=== PATIENT | male | born 1945 | race Caucasian/White ===

== ENCOUNTER 2022-07-07 16:23 | Emergency (ER) | payer MEDICARE, SELFPAY ==
--- NOTE | ~2022-07-07 | XR_ITS ---
EXAMINATION: XR CHEST CLINICAL INFORMATION: Cough. COMPARISON: None available. TECHNIQUE: Frontal view of the chest was obtained. FINDINGS: Low lung volumes with diffuse bronchovascular crowding. No focal infiltrate, pleural effusion or pneumothorax. No significant cardiomediastinal contour abnormality. No acute osseous findings. The visualized upper abdomen is within normal limits. XR/XR chest 1V IMPRESSION: Low lung volumes with bronchovascular crowding. No focal consolidation, pleural effusion or pneumothorax.
--- NOTE | 2022-07-07 16:40 | ED.GENADULT ---
HPI - General Adult General Chief complaint: General Medical Stated complaint: fever weakness Time Seen by Provider: 07/07/22 16:36 Source: patient Mode of arrival: EMS Limitations: no limitations History of Present Illness HPI narrative: Patient 77 years old history of Parkinson disease AFib on Eliquis sent from the walk-in clinic for fever temperature of 103 degrees. Patient has been coughing for last 1month with mucopurulent phlegm saturating 94% at room air. Complaining of chills no chest pain or palpitation no abdominal pain no nausea vomiting no urinary symptoms Related Data Home Medications Medication Instructions Recorded Confirmed amlodipine 5 mg tablet 5 mg PO DAILY 07/07/22 apixaban 2.5 mg tablet (Eliquis) 2.5 mg PO BID 07/07/22 carbidopa 25 mg-levodopa 100 mg 0 tab PO 07/07/22 tablet citalopram 20 mg tablet 20 mg PO DAILY 07/07/22 clonidine HCl 0.1 mg tablet 0.1 mg PO BID 07/07/22 diclofenac sodium 1 % topical gel 1 g topical TID 07/07/22 hydrochlorothiazide 25 mg tablet 25 mg PO DAILY 07/07/22 levetiracetam 750 mg tablet 1,500 mg PO BID 07/07/22 levothyroxine 25 mcg tablet 25 mcg PO DAILY 07/07/22 losartan 100 mg tablet 100 mg PO DAILY 07/07/22 oxcarbazepine 300 mg tablet 300 mg PO TID 07/07/22 pravastatin 20 mg tablet 20 mg PO DAILY 07/07/22 propranolol 120 mg capsule,24 120 mg PO DAILY 07/07/22 hr,extended release Previous Rx's Medication Instructions Recorded amoxicillin 875 mg-potassium 1 tab PO BID #20 tabs 07/07/22 clavulanate 125 mg tablet Allergies Allergy/AdvReac Type Severity Reaction Status Date / Time No Known Allergies Allergy Verified 07/07/22 15:47 Review of Systems Review of Systems: Yes all other systems are reviewed and are negative [facility] Social History Social History Alcohol intake: never Smoked in Last 30 Days: No Use of substances other than those prescribed or required for medical reasons: No Advance Directives: No Advance Directives Information Provided: No Physical Exam ED Vital Signs: Vital Signs - 24 hr 07/07/22 16:43 07/07/22 18:19 07/07/22 18:33 Temperature 102.8 F H 102.9 F H 102.9 F H Pulse Rate 90 92 96 Respiratory Rate 20 20 22 H Blood Pressure 170/81 H 177/90 H Pulse Oximetry 92 93 93 Oxygen Delivery Method Room Air Room Air Room Air 07/07/22 18:48 07/07/22 19:02 07/07/22 20:00 Temperature 100.9 F H Pulse Rate 93 92 87 Respiratory Rate 22 H 20 20 Blood Pressure 172/85 H 155/94 H 168/85 H Pulse Oximetry 90 L 93 95 Oxygen Delivery Method Room Air Room Air Room Air BMI result Body Mass Index 29.9 Appearance: Alert. Oriented X3. No acute distress. Eyes: PERRLA, No Nystagmus ENT: Pharynx normal. Oral Mucosa moist Neck: Normal inspection. Neck supple. CVS: Normal heart rate and rhythm. Pulses normal. Respiratory: No respiratory distress. Equal air entry bilateral, no wheezing/rales/rhonchi bilateral conducted sounds at the base Abdomen: Soft and nontender. Bowel sounds are present, no mass palpable, no CVA tenderness Skin: Skin warm and dry. Normal skin color. Normal skin turgor. Extremities: No lower extremity edema. No calf tenderness Neuro: Oriented X 3. No motor deficit. No sensory deficit.No cerebellar signs , cranial nerves II-XII intact parkinsonian features Medications Administered Discontinued Medications Generic Name Dose Route Start Last Admin Trade Name Freq PRN Reason Stop Dose Admin Acetaminophen 650 mg 07/07/22 16:46 07/07/22 17:01 Acetaminophen Supp 650 Mg Supp.Rect AR 07/07/22 16:47 650 mg ONCE ONE Administration Acetaminophen 650 mg 07/07/22 19:49 07/07/22 20:06 Acetaminophen 325 Mg Tablet PO 07/07/22 19:50 650 mg ONCE ONE Administration Sodium Chloride 1,000 mls @ 999 mls/hr 07/07/22 16:45 07/07/22 18:10 Ns IV 07/07/22 17:45 Infused .Q1H1M ONE Infusion Piperacillin Sod/Tazobactam 50 mls @ 100 mls/hr 07/07/22 16:49 07/07/22 17:44 Sod 3.375 gm/ Sodium Chloride IV 07/07/22 17:18 Infused ONCE ONE Infusion Medical Decision Making Medical Decision Making [facility] Narrative: Patient Parkinson's with fever with chronic cough or workup negative for count slightly elevated cause of fever on very clear likely bronchitis discharge patient home on doxycycline Lab Data [facility] Lab Attestation statement: I reviewed the patient's lab results. 07/07/22 17:05 07/07/22 17:05 Labs: Lab Results 07/07/22 07/07/22 07/07/22 Range/Units 17:05 17:05 17:05 WBC 13.7 H (4.8-10.8) X10*3/uL RBC 4.69 (4.60-5.80) X10*6/uL Hgb 14.5 (14.0-18.0) g/dl Hct 43.0 (42.0-52.0) % MCV 91.7 (80.0-98.0) fL MCH 30.9 (27.0-33.0) pg MCHC 33.7 (31.0-36.0) g/dl RDW 13.0 (11.0-16.0) % Plt Count 235 (160-400) X10*3/uL MPV 8.8 L (9.4-12.4) fL Immature Gran % (Auto) 0.4 (0.0-0.4) % Neut % (Auto) 79.4 H (45-73) % Lymph % (Auto) 12.2 L (20-40) % [place] % (Auto) 7.4 (2-11) % Eos % (Auto) 0.4 (0-4) % Baso % (Auto) 0.2 (0-2) % Lymph # (Auto) 1.7 (1.2-4.9) X10*3/uL [place] # (Auto) 1.0 (0.1-1.2) X10*3/uL Eos # (Auto) 0.1 (0.0-0.4) X10*3/uL Baso # (Auto) 0.0 (0.0-0.2) X10*3/uL Abs Immat Gran (auto) 0.06 H (0.00-0.03) X10*3/uL Absolute Neuts (auto) 10.8 H (2.0-8.3) x10*3/uL Absolute Nucleated RBC 0.000 (0.0-0.012) X10*3/uL Nucleated RBC % (auto) 0.0 (0.0-0.2) /100WBC Sodium 143 (135-145) mmol/L Potassium 3.2 L (3.3-5.1) mmol/L Chloride 99 (96-108) mmol/L Carbon Dioxide 32 H (22-29) mmol/L Anion Gap 15 (12-20) BUN 28 H (9-16) mg/dL Creatinine 1.62 H (0.5-1.4) mg/dL Estim Creat Clear Calc 36.1 Estimated GFR 42 Random Glucose 110 (60-115) mg/dL Lactic Acid 1.1 (0.5-2.0) mmol/L Calcium 9.8 (8.4-10.2) mg/dL Total Bilirubin 0.7 (0.0-1.0) mg/dL AST 17 (5-37) U/L ALT < 6 (0-40) U/L Alkaline Phosphatase 84 (39-117) U/L Total Protein 6.5 (6.5-8.0) g/dL Albumin 4.4 (3.5-5.0) g/dL Urine Color Urine Appearance Urine pH (5.0-9.0) Ur Specific [place] (1.005-1.025) Urine Protein (Neg-Trace) mg/dL Urine Glucose (UA) (Negative) mg/dL Urine Ketones (Negative) mg/dL Urine Blood (Negative) Urine Nitrite (Negative) Ur Leukocyte Esterase (Negative) Urine RBC (0-2) /HPF Urine WBC (0-5) /HPF Ur Squamous Epith Cells (0-2) /HPF Urine Bacteria (None Seen) Hyaline Casts (0-2) /LPF Influenza Type A (PCR) (Negative) Influenza Type B (PCR) (Negative) RSV RNA Qual (PCR) (Negative) SARS-CoV-2 RNA (RT-PCR) (Negative) 07/07/22 07/07/22 Range/Units 17:05 19:05 WBC (4.8-10.8) X10*3/uL RBC (4.60-5.80) X10*6/uL Hgb (14.0-18.0) g/dl Hct (42.0-52.0) % MCV (80.0-98.0) fL MCH (27.0-33.0) pg MCHC (31.0-36.0) g/dl RDW (11.0-16.0) % Plt Count (160-400) X10*3/uL MPV (9.4-12.4) fL Immature Gran % (Auto) (0.0-0.4) % Neut % (Auto) (45-73) % Lymph % (Auto) (20-40) % [place] % (Auto) (2-11) % Eos % (Auto) (0-4) % Baso % (Auto) (0-2) % Lymph # (Auto) (1.2-4.9) X10*3/uL [place] # (Auto) (0.1-1.2) X10*3/uL Eos # (Auto) (0.0-0.4) X10*3/uL Baso # (Auto) (0.0-0.2) X10*3/uL Abs Immat Gran (auto) (0.00-0.03) X10*3/uL Absolute Neuts (auto) (2.0-8.3) x10*3/uL Absolute Nucleated RBC (0.0-0.012) X10*3/uL Nucleated RBC % (auto) (0.0-0.2) /100WBC Sodium (135-145) mmol/L Potassium (3.3-5.1) mmol/L Chloride (96-108) mmol/L Carbon Dioxide (22-29) mmol/L Anion Gap (12-20) BUN (9-16) mg/dL Creatinine (0.5-1.4) mg/dL Estim Creat Clear Calc Estimated GFR Random Glucose (60-115) mg/dL Lactic Acid (0.5-2.0) mmol/L Calcium (8.4-10.2) mg/dL Total Bilirubin (0.0-1.0) mg/dL AST (5-37) U/L ALT (0-40) U/L Alkaline Phosphatase (39-117) U/L Total Protein (6.5-8.0) g/dL Albumin (3.5-5.0) g/dL Urine Color Yellow Urine Appearance Clear Urine pH 6.0 (5.0-9.0) Ur Specific [place] 1.015 (1.005-1.025) Urine Protein 100 (2+) H (Neg-Trace) mg/dL Urine Glucose (UA) Negative (Negative) mg/dL Urine Ketones Negative (Negative) mg/dL Urine Blood Negative (Negative) Urine Nitrite Negative (Negative) Ur Leukocyte Esterase Negative (Negative) Urine RBC 0-2 (0-2) /HPF Urine WBC 0-5 (0-5) /HPF Ur Squamous Epith Cells 0-2 (0-2) /HPF Urine Bacteria None Seen (None Seen) Hyaline Casts 0-2 (0-2) /LPF Influenza Type A (PCR) NEGATIVE (Negative) Influenza Type B (PCR) NEGATIVE (Negative) RSV RNA Qual (PCR) NEGATIVE (Negative) SARS-CoV-2 RNA (RT-PCR) NEGATIVE (Negative) Discharge Plan Discharge Clinical Impression: Febrile illness, Acute bronchitis Patient Disposition: Home, Self-Care Instructions: Fever in Adults (ED), Acute Bronchitis (ED) Additional Instructions: Take antibiotic as prescribed Tylenol for fever Follow with PCP as needed Prescriptions: New amoxicillin-pot clavulanate 875-125 mg tablet 1 tab PO BID Qty: 20 0RF No Action levothyroxine 25 mcg tablet 25 mcg PO DAILY Eliquis 2.5 mg tablet 2.5 mg PO BID carbidopa-levodopa 25-100 mg tablet 0 tab PO oxcarbazepine 300 mg tablet 300 mg PO TID losartan 100 mg tablet 100 mg PO DAILY propranolol 120 mg capsule,extended release 24 hr 120 mg PO DAILY hydrochlorothiazide 25 mg tablet 25 mg PO DAILY levetiracetam 750 mg tablet 1,500 mg PO BID amlodipine 5 mg tablet 5 mg PO DAILY citalopram 20 mg tablet 20 mg PO DAILY pravastatin 20 mg tablet 20 mg PO DAILY clonidine HCl 0.1 mg tablet 0.1 mg PO BID diclofenac sodium 1 % gel 1 g topical TID
[2022-07-07 16:43] VITALS: BP 144/78; PULSE 90; PULSE 99; RESP 20; TEMP 39.3; O2SAT 92; O2SAT 94; BMI 29.9
--- NOTE | 2022-07-07 16:45 | ECG_ITS ---
Test Reason : FEVER Blood Pressure : / mmHG Vent. Rate : 099 BPM Atrial Rate : 288 BPM P-R Int : 000 ms QRS Dur : 078 ms QT Int : 276 ms P-R-T Axes : 000 -13 -39 degrees QTc Int : 354 ms Poor data quality Atrial flutter with variable A-V block Inferior infarct , age undetermined Abnormal ECG No previous ECGs available Referred By: Antonio Pineda Electronically Signed By:BRITNEY WAHL MD
[2022-07-07] MEDS: Acetaminophen Supp 650 MG SUPP.RECT PR (17:01)
[2022-07-07] MEDS: 0.9 % Sodium Chloride 1,000 ML 999 ML IV (17:02)
[2022-07-07 17:13] LABS: MANUAL DIFF FLAG NO
[2022-07-07] MEDS: Piperacillin Sodium/Tazobactam 3.375 GM in 0.9 % Sodium Chloride 50 ML IV (17:14)
--- NOTE | 2022-07-07 17:21 | PC.NURSE ---
pt AOx3, hard of hearing. Pt reporting, cough, and sore throat for two weeks. Pt also has fever of 102.8 rectal, it is unknown how long he has had the fever. vitals stable - 94% on RA. Labs and blood cultures drawn, IV inserted. bilingual patient support caseworker intact. EKG done - aflutter. Pt on Eliquis.
[2022-07-07 17:22] LABS: Basophils Percent Auto 0.2 % (0-2); Eosinophils Absolute Auto 0.1 X10*3/uL (0.0-0.4); Eosinophils Percent Auto 0.4 % (0-4); Hemoglobin 14.5 g/dl (14.0-18.0); Imm Gran Abs Auto 0.06 X10*3/uL (0.00-0.03); Imm Gran Pct Auto 0.4 % (0.0-0.4); Lymphocytes Absolute Auto 1.7 X10*3/uL (1.2-4.9); Lymphocytes Percent Auto 12.2 % (20-40); Mean Corpuscular HGB Conc 33.7 g/dl (31.0-36.0); Mean Corpuscular Hemoglobin 30.9 pg (27.0-33.0); Mean Corpuscular Volume 91.7 fL (80.0-98.0); Mean Platelet Volume 8.8 fL (9.4-12.4); Monocytes Percent Auto 7.4 % (2-11); Neutrophils Absolute Auto 10.8 x10*3/uL (2.0-8.3); Neutrophils Percent Auto 79.4 % (45-73); Platelet Count 235 X10*3/uL (160-400); Red Blood Count 4.69 X10*6/uL (4.60-5.80); White Blood Count 13.7 X10*3/uL (4.8-10.8)
[2022-07-07 17:44] LABS: Lactic Acid 1.1 mmol/L (0.5-2.0)
[2022-07-07 17:50] LABS: Alanine Aminotransferase < 6 U/L (0-40); Albumin Level 4.4 g/dL (3.5-5.0); Alkaline Phosphatase 84 U/L (39-117); Anion Gap 15 (12-20); Aspartate Amino Transferase 17 U/L (5-37); Bilirubin Total 0.7 mg/dL (0.0-1.0); Blood Urea Nitrogen 28 mg/dL (9-16); Calcium 9.8 mg/dL (8.4-10.2); Carbon Dioxide 32 mmol/L (22-29); Chloride 99 mmol/L (96-108); Creatinine Clr Calc Pharmacy 36.1; Estimated Glomerular Filt Rate 42; Glucose Random 110 mg/dL (60-115); Potassium 3.2 mmol/L (3.3-5.1); Sodium 143 mmol/L (135-145); Total Protein 6.5 g/dL (6.5-8.0)
[2022-07-07 18:18] LABS: Influenza A PCR NEGATIVE (Negative); Influenza B PCR NEGATIVE (Negative); Resp Syncy Virus RNA Qual PCR NEGATIVE (Negative); SARS COV2 PCR INHOUSE NEGATIVE (Negative)
[2022-07-07 18:19] VITALS: BP 170/81; PULSE 92; RESP 20; TEMP 39.4; O2SAT 93
[2022-07-07 18:33] VITALS: BP 177/90; PULSE 96; RESP 22; TEMP 39.4; O2SAT 93
[2022-07-07 18:48] VITALS: BP 172/85; PULSE 93; RESP 22; O2SAT 90
[2022-07-07 19:02] VITALS: BP 155/94; PULSE 92; RESP 20; O2SAT 93
[2022-07-07 19:14] LABS: Appearance Urine Clear; Color Urine Yellow; Glucose Urine UA Negative (Negative); Leukocyte Esterase Urine Negative (Negative); Nitrite Urine Negative (Negative); Specific Gravity - Urine 1.015 (1.005-1.025); UMIC TRIGGER UACC YES; Urine Blood Negative (Negative); Urine Ketones Negative (Negative); Urine Protein 100 (2+) mg/dL (Neg-Trace)
--- NOTE | 2022-07-07 19:14 | PC.NURSE ---
patient a&ox2, pt aflutter on monitor, vitals obtained- pt continues to be febrile will notify provider, urine obtained, pt currently denying pain, call wong within reach, will continue to monitor.
[2022-07-07 19:17] LABS: Bacteria Urine None Seen (None Seen); Hyaline Casts Urine 0-2 /LPF (0-2); RBC Urine 0-2 /HPF (0-2); Squamous Epithelial Cell Urine 0-2 /HPF (0-2); WBC Urine 0-5 /HPF (0-5)
[2022-07-07 20:00] VITALS: BP 168/85; PULSE 87; RESP 20; TEMP 38.3; O2SAT 95
[2022-07-07] MEDS: Acetaminophen 325 MG TABLET 650 MG PO (20:06)
--- NOTE | 2022-07-07 20:06 | PC.NURSE ---
pt oral temp 100.9. medicated with tylenol per order
== END 2022-07-07 22:23 | disposition home or self-care (01) ==
PROVIDERS: Emergency Provider Internal Medicine; PCP Otolaryngology
DX: R50.9 Fever, unspecified (principal); J20.9 Acute bronchitis, unspecified; Z20.822 Contact with and (suspected) exposure to COVID-19; Z20.828 Contact with and (suspected) exposure to other viral communicable diseases; I10 Essential (primary) hypertension; E78.5 Hyperlipidemia, unspecified; I48.91 Unspecified atrial fibrillation; Z79.01 Long term (current) use of anticoagulants; Z79.899 Other long term (current) drug therapy
CPT/HCPCS: 0241U; 36415; 71045; 80053; 81001; 83605; 85025; 87040; 87076; 87077; 87205; 93005; 96361; 96374; 99284; 99285; J2543

== ENCOUNTER 2022-07-09 13:44 | Emergency (ER) | payer MEDICARE, SELFPAY ==
--- NOTE | ~2022-07-09 | XR_ITS ---
EXAMINATION: XR CHEST CLINICAL INFORMATION: Pneumonia COMPARISON: Chest x-ray 07/07/2022 TECHNIQUE: Frontal portable view of the chest was obtained. 6:15 PM FINDINGS: Lungs are clear. No pulmonary vascular congestion. There is no pleural effusion. The heart size is normal. The cardiac and mediastinal contours are normal. There are calcifications of the thoracic aorta. There are multilevel degenerative changes of dorsal spine. XR/XR chest 1V IMPRESSION: Unremarkable examination.
--- NOTE | 2022-07-09 13:47 | ED.GENADULT ---
HPI - General Adult General Chief complaint: Recheck/Abnormal Lab/Rx <ELIER Wynn - Last Filed: 07/09/22 13:52> Stated complaint: abnormal labs <ELIER Wynn - Last Filed: 07/09/22 13:52> Time Seen by Provider: 07/09/22 17:55 <ELIER Wynn - Last Filed: 07/09/22 13:52> Source: patient <Kayce Constantino MD - Last Filed: 07/09/22 20:04> Mode of arrival: ambulatory <Kayce Constantino MD - Last Filed: 07/09/22 20:04> Limitations: no limitations <Kayce Constantino MD - Last Filed: 07/09/22 20:04> History of Present Illness HPI narrative: Patient comes to the emergency room, stating that he receive a phone call at home, asking him to return to emergency room to repeat blood work since 1 of his blood cultures was positive. 48 hours ago, patient was diagnosed with bronchitis, sent home with amoxicillin/clavulanic acid. Patient states that since he started the antibiotic, he feels better, no coughing, no fever or chills, no chest pain or shortness of breath. <Kayce Constantino MD - Last Filed: 07/09/22 20:04> Related Data Home medications: Home Medications Medication Instructions Recorded Confirmed amlodipine 5 mg tablet 5 mg PO DAILY 07/07/22 apixaban 2.5 mg tablet (Eliquis) 2.5 mg PO BID 07/07/22 carbidopa 25 mg-levodopa 100 mg 0 tab PO 07/07/22 tablet citalopram 20 mg tablet 20 mg PO DAILY 07/07/22 clonidine HCl 0.1 mg tablet 0.1 mg PO BID 07/07/22 diclofenac sodium 1 % topical gel 1 g topical TID 07/07/22 hydrochlorothiazide 25 mg tablet 25 mg PO DAILY 07/07/22 levetiracetam 750 mg tablet 1,500 mg PO BID 07/07/22 levothyroxine 25 mcg tablet 25 mcg PO DAILY 07/07/22 losartan 100 mg tablet 100 mg PO DAILY 07/07/22 oxcarbazepine 300 mg tablet 300 mg PO TID 07/07/22 pravastatin 20 mg tablet 20 mg PO DAILY 07/07/22 propranolol 120 mg capsule,24 120 mg PO DAILY 07/07/22 hr,extended release Previous Rx's Medication Instructions Recorded amoxicillin 875 mg-potassium 1 tab PO BID #20 tabs 07/07/22 clavulanate 125 mg tablet <ELIER Wynn - Last Filed: 07/09/22 13:52> Allergies/adverse reactions: Allergies Allergy/AdvReac Type Severity Reaction Status Date / Time No Known Allergies Allergy Verified 07/09/22 13:53 <ELIER Wynn - Last Filed: 07/09/22 13:52> Review of Systems Review of Systems: Constitutional : No Weight loss, No Fever, No Chills, No Night Sweats, No Fatigue, No Malaise ENT/Mouth : No Hearing loss, No Ear Pain, No Nasal Congestion, No Sinus Pain, No Hoarseness, No sore throat, No Rhinorrhea, No Swallowing Difficulty Eyes: No Eye Pain, No Swelling, No Redness, No Foreign Body, No Discharge, No Vision Changes Cardiovascular : No Chest Pain, No SOB, No Dyspnea on Exertion, No Orthopnea, No Edema, No Palpitations Respiratory : No Cough, No Sputum, No Wheezing, No Smoke Exposure, No Dyspnea Gastrointestinal : No Nausea, No Vomiting, No Diarrhea, No Constipation, No abdominal Pain, No Hematochezia, No Melena Genitourinary : no irregular bleeding, No Dysuria, No Urinary Frequency, No Hematuria, No Urinary Incontinence, No Urgency, No Flank Pain, No Urinary Flow Changes, No Hesitancy Musculoskeletal : No joint pain, No Myalgias, No Joint Swelling Skin : No Skin Lesions, No rash Neuro : No Weakness, No Numbness, No Paresthesias, No Loss of Consciousness, No Dizziness, No Headache Psych : No Anxiety/Panic, No Depression, No SI/HI/AH/VH, No Social Issues, Heme/Lymph: No Bruising, No Bleeding,No Lymphadenopathy Endocrine : No Polyuria, No Polydipsia, No Temperature Intolerance <Kayce Constantino MD - Last Filed: 07/09/22 20:04> [facility] Past Medical History Medical History: Medical History Atrial fibrillation Hyperlipidemia Hypertension Hypothyroidism Seizure disorder <ELIER Wynn - Last Filed: 07/09/22 13:52> Social History Social History: Social History Alcohol intake: never Advance Directives: No Advance Directives Information Provided: No <ELIER Wynn - Last Filed: 07/09/22 13:52> Physical Exam ED Vital Signs: Vital Signs - 24 hr 07/09/22 13:48 Temperature 97.9 F Pulse Rate 75 Respiratory Rate 16 Blood Pressure 129/60 Pulse Oximetry 96 Oxygen Delivery Method Room Air BMI result Body Mass Index 30.6 <ELIER Wynn - Last Filed: 07/09/22 13:52> Vital Signs - 24 hr 07/09/22 13:48 Temperature 97.9 F Pulse Rate 75 Respiratory Rate 16 Blood Pressure 129/60 Pulse Oximetry 96 Oxygen Delivery Method Room Air BMI result Body Mass Index 30.6 <Kayce Constantino MD - Last Filed: 07/09/22 20:04> Const Other: Appearance: Alert. Oriented X3. No acute distress. Eyes: Pupils equal, round and reactive to light. ENT: Pharynx normal. Neck: Normal inspection. Neck supple. No lymph nodes noted. No crepitus CVS: Normal heart rate and rhythm. Pulses normal. Normal S1 and S2 Respiratory: No respiratory distress. Breath sounds normal. No Wheezing. No rales Abdomen: Soft and nontender. No rigidity. No distention. Skin: Skin warm and dry. Normal skin color. Normal skin turgor. Extremities: No lower extremity edema. No Lacerations. No Rash Neuro: Oriented X 3. No motor deficit. No sensory deficit. Moving all extremities. No slurred speech. CN 2 through 12 grossly intact Psych: calm, cooperative, normal affect <Kayce Constantino MD - Last Filed: 07/09/22 20:04> Course Course Course Narrative: RME--77 year old M with PMHx Parkinson on AFib on Eliquis returning to the ED today for +blood cultures showing 1/2 gram + rods. Patient was seen and treated on 07/07 had fever 103, discharged on Augmentin for bronchitis. Patient reports overall improved, but had fever yesterday. Denies CP/SOB Afbrile in triage, VSS Repeat labs including lactic/blood cx and UA ordered <ELIER Wynn - Last Filed: 07/09/22 13:52> Medications Administered Discontinued Medications Generic Name Dose Route Start Last Admin Trade Name Freq PRN Reason Stop Dose Admin Potassium Chloride 60 meq 07/09/22 14:57 07/09/22 18:01 Potassium Chloride Packet 20 Meq Packet PO 07/09/22 14:58 60 meq ONCE ONE Administration <ELIER Wynn - Last Filed: 07/09/22 13:52> Medications Administered Discontinued Medications Generic Name Dose Route Start Last Admin Trade Name Freq PRN Reason Stop Dose Admin Potassium Chloride 60 meq 07/09/22 14:57 07/09/22 18:01 Potassium Chloride Packet 20 Meq Packet PO 07/09/22 14:58 60 meq ONCE ONE Administration <Kayce Constantino MD - Last Filed: 07/09/22 20:04> Medical Decision Making Medical Decision Making MDM Narrative: -patient's would blood cell count improved, no fever /chills, normal vitals -patient feels much better. Sepsis not suspected. -blood cultures were obtained, likely the blood culture which was positive is a contaminant -patient received p.o. potassium. <Kayce Constantino MD - Last Filed: 07/09/22 20:04> Differential Diagnosis Differential Diagnoses: The differential diagnosis associated with the presentation includes (Positive blood cultures, bronchitis) <Kayce Constantino MD - Last Filed: 07/09/22 20:04> Lab Data MDM Lab Attestation statement: I reviewed the patient's lab results. <Kayce Constantino MD - Last Filed: 07/09/22 20:04> Result Diagrams: 07/09/22 14:17 07/09/22 14:17 <ELIER Wynn - Last Filed: 07/09/22 13:52> Labs: Lab Results 07/09/22 07/09/22 07/09/22 Range/Units 14:17 14:17 14:17 WBC 5.9 (4.8-10.8) X10*3/uL RBC 4.41 L (4.60-5.80) X10*6/uL Hgb 13.7 L (14.0-18.0) g/dl Hct 40.8 L (42.0-52.0) % MCV 92.5 (80.0-98.0) fL MCH 31.1 (27.0-33.0) pg MCHC 33.6 (31.0-36.0) g/dl RDW 13.0 (11.0-16.0) % Plt Count 190 (160-400) X10*3/uL MPV 9.3 L (9.4-12.4) fL Immature Gran % (Auto) 0.3 (0.0-0.4) % Neut % (Auto) 53.1 (45-73) % Lymph % (Auto) 31.2 (20-40) % [place] % (Auto) 12.1 H (2-11) % Eos % (Auto) 2.6 (0-4) % Baso % (Auto) 0.7 (0-2) % Lymph # (Auto) 1.8 (1.2-4.9) X10*3/uL [place] # (Auto) 0.7 (0.1-1.2) X10*3/uL Eos # (Auto) 0.2 (0.0-0.4) X10*3/uL Baso # (Auto) 0.0 (0.0-0.2) X10*3/uL Abs Immat Gran (auto) 0.02 (0.00-0.03) X10*3/uL Absolute Neuts (auto) 3.1 (2.0-8.3) x10*3/uL Absolute Nucleated RBC 0.000 (0.0-0.012) X10*3/uL Nucleated RBC % (auto) 0.0 (0.0-0.2) /100WBC Sodium 143 (135-145) mmol/L Potassium 3.1 L (3.3-5.1) mmol/L Chloride 103 (96-108) mmol/L Carbon Dioxide 28 (22-29) mmol/L Anion Gap 15 (12-20) BUN 26 H (9-16) mg/dL Creatinine 1.45 H (0.5-1.4) mg/dL Estim Creat Clear Calc 40.7 Estimated GFR 47 Random Glucose 113 (60-115) mg/dL Lactic Acid 1.5 (0.5-2.0) mmol/L Calcium 9.1 D (8.4-10.2) mg/dL Magnesium 2.0 (1.6-2.6) mg/dL Total Bilirubin 0.4 (0.0-1.0) mg/dL Direct Bilirubin < 0.2 (0.0-0.5) mg/dL AST 22 (5-37) U/L ALT 9 (0-40) U/L Alkaline Phosphatase 66 (39-117) U/L Total Protein 6.2 L (6.5-8.0) g/dL Albumin 3.8 (3.5-5.0) g/dL <ELIER Wynn - Last Filed: 07/09/22 13:52> Lab Results 07/09/22 07/09/22 07/09/22 Range/Units 14:17 14:17 14:17 WBC 5.9 (4.8-10.8) X10*3/uL RBC 4.41 L (4.60-5.80) X10*6/uL Hgb 13.7 L (14.0-18.0) g/dl Hct 40.8 L (42.0-52.0) % MCV 92.5 (80.0-98.0) fL MCH 31.1 (27.0-33.0) pg MCHC 33.6 (31.0-36.0) g/dl RDW 13.0 (11.0-16.0) % Plt Count 190 (160-400) X10*3/uL MPV 9.3 L (9.4-12.4) fL Immature Gran % (Auto) 0.3 (0.0-0.4) % Neut % (Auto) 53.1 (45-73) % Lymph % (Auto) 31.2 (20-40) % [place] % (Auto) 12.1 H (2-11) % Eos % (Auto) 2.6 (0-4) % Baso % (Auto) 0.7 (0-2) % Lymph # (Auto) 1.8 (1.2-4.9) X10*3/uL [place] # (Auto) 0.7 (0.1-1.2) X10*3/uL Eos # (Auto) 0.2 (0.0-0.4) X10*3/uL Baso # (Auto) 0.0 (0.0-0.2) X10*3/uL Abs Immat Gran (auto) 0.02 (0.00-0.03) X10*3/uL Absolute Neuts (auto) 3.1 (2.0-8.3) x10*3/uL Absolute Nucleated RBC 0.000 (0.0-0.012) X10*3/uL Nucleated RBC % (auto) 0.0 (0.0-0.2) /100WBC Sodium 143 (135-145) mmol/L Potassium 3.1 L (3.3-5.1) mmol/L Chloride 103 (96-108) mmol/L Carbon Dioxide 28 (22-29) mmol/L Anion Gap 15 (12-20) BUN 26 H (9-16) mg/dL Creatinine 1.45 H (0.5-1.4) mg/dL Estim Creat Clear Calc 40.7 Estimated GFR 47 Random Glucose 113 (60-115) mg/dL Lactic Acid 1.5 (0.5-2.0) mmol/L Calcium 9.1 D (8.4-10.2) mg/dL Magnesium 2.0 (1.6-2.6) mg/dL Total Bilirubin 0.4 (0.0-1.0) mg/dL Direct Bilirubin < 0.2 (0.0-0.5) mg/dL AST 22 (5-37) U/L ALT 9 (0-40) U/L Alkaline Phosphatase 66 (39-117) U/L Total Protein 6.2 L (6.5-8.0) g/dL Albumin 3.8 (3.5-5.0) g/dL <Kayce Constantino MD - Last Filed: 07/09/22 20:04> Independent Interpretation I performed an independent interpretation of an: Plain X-Ray (I reviewed the x-ray: No infiltrate) <Kayce Constantino MD - Last Filed: 07/09/22 20:04> Radiology Impression Discussion of test interpretation with radiology: I have reviewed the radiologist's reading. <Kayce Constantino MD - Last Filed: 07/09/22 20:04> Radiologist Impression: ?Lungs are clear. No pulmonary vascular congestion. There is no pleural effusion. The heart size is normal. The cardiac and mediastinal contours are normal. There are calcifications of the thoracic aorta. There are multilevel degenerative changes of dorsal spine.? ? XR/XR chest 1V IMPRESSION: Unremarkable examination. <Kayce Constantino MD - Last Filed: 07/09/22 20:04> Discharge Plan Discharge Clinical Impression: Positive blood culture <ELIER Wynn - Last Filed: 07/09/22 13:52> Patient Disposition: Home, Self-Care <ELIER Wynn - Last Filed: 07/09/22 13:52> Instructions: Acute Bronchitis (ED), Bacteremia (ED) <ELIER Wynn - Last Filed: 07/09/22 13:52> Additional Instructions: Please follow-up with your primary care physician tomorrow. If you have any worsening or new symptoms, please return to the emergency room or call 911 <ELIER Wynn - Last Filed: 07/09/22 13:52> Prescriptions: No Action amoxicillin-pot clavulanate 875-125 mg tablet 1 tab PO BID Qty: 20 0RF levothyroxine 25 mcg tablet 25 mcg PO DAILY Eliquis 2.5 mg tablet 2.5 mg PO BID carbidopa-levodopa 25-100 mg tablet 0 tab PO oxcarbazepine 300 mg tablet 300 mg PO TID losartan 100 mg tablet 100 mg PO DAILY propranolol 120 mg capsule,extended release 24 hr 120 mg PO DAILY hydrochlorothiazide 25 mg tablet 25 mg PO DAILY levetiracetam 750 mg tablet 1,500 mg PO BID amlodipine 5 mg tablet 5 mg PO DAILY citalopram 20 mg tablet 20 mg PO DAILY pravastatin 20 mg tablet 20 mg PO DAILY clonidine HCl 0.1 mg tablet 0.1 mg PO BID diclofenac sodium 1 % gel 1 g topical TID <ELIER Wynn - Last Filed: 07/09/22 13:52>
[2022-07-09 13:48] VITALS: BP 129/60; PULSE 75; RESP 16; TEMP 36.6; O2SAT 96; BMI 30.6
[2022-07-09 14:23] LABS: MANUAL DIFF FLAG NO
[2022-07-09 14:24] LABS: Basophils Percent Auto 0.7 % (0-2); Eosinophils Absolute Auto 0.2 X10*3/uL (0.0-0.4); Eosinophils Percent Auto 2.6 % (0-4); Hematocrit 40.8 % (42.0-52.0); Hemoglobin 13.7 g/dl (14.0-18.0); Imm Gran Abs Auto 0.02 X10*3/uL (0.00-0.03); Imm Gran Pct Auto 0.3 % (0.0-0.4); Lymphocytes Absolute Auto 1.8 X10*3/uL (1.2-4.9); Lymphocytes Percent Auto 31.2 % (20-40); Mean Corpuscular HGB Conc 33.6 g/dl (31.0-36.0); Mean Corpuscular Hemoglobin 31.1 pg (27.0-33.0); Mean Corpuscular Volume 92.5 fL (80.0-98.0); Mean Platelet Volume 9.3 fL (9.4-12.4); Monocytes Absolute Auto 0.7 X10*3/uL (0.1-1.2); Monocytes Percent Auto 12.1 % (2-11); Neutrophils Absolute Auto 3.1 x10*3/uL (2.0-8.3); Neutrophils Percent Auto 53.1 % (45-73); Platelet Count 190 X10*3/uL (160-400); Red Blood Count 4.41 X10*6/uL (4.60-5.80); White Blood Count 5.9 X10*3/uL (4.8-10.8)
[2022-07-09 14:36] LABS: Lactic Acid 1.5 mmol/L (0.5-2.0)
[2022-07-09 14:43] LABS: Alanine Aminotransferase 9 U/L (0-40); Albumin Level 3.8 g/dL (3.5-5.0); Alkaline Phosphatase 66 U/L (39-117); Anion Gap 15 (12-20); Aspartate Amino Transferase 22 U/L (5-37); Bilirubin Direct < 0.2 mg/dL (0.0-0.5); Bilirubin Total 0.4 mg/dL (0.0-1.0); Blood Urea Nitrogen 26 mg/dL (9-16); Calcium 9.1 mg/dL (8.4-10.2); Carbon Dioxide 28 mmol/L (22-29); Chloride 103 mmol/L (96-108); Creatinine Clr Calc Pharmacy 40.7; Estimated Glomerular Filt Rate 47; Glucose Random 113 mg/dL (60-115); Potassium 3.1 mmol/L (3.3-5.1); Sodium 143 mmol/L (135-145); Total Protein 6.2 g/dL (6.5-8.0)
[2022-07-09] MEDS: Potassium Chloride Packet 20 MEQ PACKET 60 MEQ PO (18:01)
[2022-07-09 20:28] VITALS: BP 197/107; PULSE 62; RESP 18; TEMP 37.2; O2SAT 95
[2022-07-09] MEDS: cloNIDine HCL 0.1 MG TABLET PO (20:48)
[2022-07-09] MEDS: amLODIPine Besylate 5 MG TABLET PO (20:48)
--- NOTE | 2022-07-09 20:51 | PC.NURSE ---
Patient alert and oriented. BP reading 179/105-197/107. MD notified. Administer clonodine and amlodipine as per JUN.
== END 2022-07-09 20:54 | disposition home or self-care (01) ==
PROVIDERS: Physician Assistant; Emergency Provider Emergency Medicine; PCP Physician Assistant Medical
DX: J40 Bronchitis, not specified as acute or chronic (principal); R78.81 Bacteremia; I48.91 Unspecified atrial fibrillation; R79.89 Other specified abnormal findings of blood chemistry; Z79.899 Other long term (current) drug therapy; Z79.01 Long term (current) use of anticoagulants
CPT/HCPCS: 36415; 71045; 80048; 80076; 83605; 83735; 85025; 87040; 99283; 99284